=== PATIENT | male | born 1990 | race Caucasian/White ===

== ENCOUNTER 2017-10-01 20:15 | Emergency (ER) | payer OTHER ==
[~2017-10-01] VITALS: Ht 198.1 cm; Wt 222.3 kg
[2017-10-01] MEDS ORDERED: COREG CR10 MG PO (20:24)
[2017-10-01] MEDS ORDERED: HYDROCHLOROTHIA25 MG PO (20:25)
[2017-10-01] MEDS ORDERED: AVAPRO75 MG PO (20:25)
== END 2017-10-01 23:47 | disposition home or self-care (01) ==
LOC: ER 20:15
DX: M54.5 Low back pain (principal)

== ENCOUNTER 2018-01-05 20:03 | Emergency (ER) | payer OTHER ==
[~2018-01-05] VITALS: Ht 198.1 cm; Wt 222.3 kg
[~2018-01-05 20:03] MED LIST: AVAPRO75 MG PO; COREG CR10 MG PO; HYDROCHLOROTHIA25 MG PO
== END 2018-01-05 23:41 | disposition home or self-care (01) ==
LOC: ER 20:03
DX: S20.212A Contusion of left front wall of thorax, initial encounter (principal); S20.211A Contusion of right front wall of thorax, initial encounter; S60.221A Contusion of right hand, initial encounter; V49.9XXA Car occupant (driver) (passenger) injured in unspecified traffic accident, initial encounter; Y93.89 Activity, other specified; Y92.488 Other paved roadways as the place of occurrence of the external cause; Y99.8 Other external cause status

== ENCOUNTER 2019-12-07 08:14 | Emergency (ER) | payer OTHER ==
[~2019-12-07] VITALS: Ht 198.1 cm; Wt 215.5 kg
[2019-12-07] MEDS ORDERED: HYDROCHLOROTHIA25 MG (08:25)
[2019-12-07] MEDS ORDERED: AVAPRO300 MG (08:25)
[2019-12-07] MEDS ORDERED: CARVEDILOL25 MG (08:25)
[2019-12-07] MEDS ORDERED: NORFLEX100MG PO (10:27)
[2019-12-07] MEDS ORDERED: KETO10TA2 PO (10:27)
[2019-12-07] MEDS ORDERED: MEDROLPACK PO (10:42)
== END 2019-12-07 11:03 | disposition home or self-care (01) ==
LOC: ER 08:14
DX: M54.5 Low back pain (principal); M25.562 Pain in left knee